=== PATIENT | male | born 1980 | race Caucasian/White ===

== ENCOUNTER 2021-05-08 14:20 | Emergency (ER) | payer BC ==
[2021-05-08] MEDS ORDERED: ONDANSETRON 4 MG (ODT) TAB ONE (15:30)
[2021-05-08] MEDS ORDERED: HYDROMORPHONE HCL 1 MG/ML INJ ONE (15:30)
[2021-05-08] MEDS ORDERED: dexAMETHasone 10 MG/ML VIAL ONE (15:30)
[2021-05-08] MEDS ORDERED: LIDOCAINE 4% PATCH ONE (15:31)
--- NOTE | 2021-05-08 15:48 | EDPHYS ---
Physician Documentation [facility] Name: Oleksandr Perez Age: 40 yrs Sex: Male : 1980 Arrival Date: 05/08/2021 Time: 14:21 Bed 12 Private MD: ED Physician Kalyan Shukla HPI: 05/08 14:59 This 40 yrs old Male presents to ER via Ambulatory with complaints of Back pm1 Pain. 14:59 The patient presents with pain that is chronic. The symptoms are located in the left pm1 low back. Onset: The symptoms/episode began/occurred 1 year(s) ago. The pain radiates to the left gluteus elvin. Associated signs and symptoms: Pertinent negatives: constipation, incontinence, numbness, tingling, weakness. Modifying factors: The patient symptoms are alleviated by remaining still, the patient symptoms are aggravated by movement. Severity of symptoms: in the emergency department the symptoms are actually worse. The patient has experienced similar episodes in the past, chronically. The patient has not recently seen a physician. Patient with recent Covid diagnoses in the past few weeks therefore he missed his steroid injection shot. Patient plans on contacting his neurologist tomorrow to reestablish injection shot. Historical: - Allergies: 14:37 No Known Allergies; ll1 - PMHx: 14:37 spinal stenosis; ll1 - PSHx: 14:37 Unable to Obtain; ll1 - Immunization history:: Client reports having NOT received the Covid vaccine. - Social history:: Smoking status: Patient reports the use of cigarette tobacco products, smokes one pack cigarettes per day. ROS: 14:59 Constitutional: Negative for fever, chills, and weight loss, Cardiovascular: Negative pm1 for chest pain, palpitations, and edema, Respiratory: Negative for shortness of breath, cough, wheezing, and pleuritic chest pain, Abdomen/GI: Negative for abdominal pain, nausea, vomiting, diarrhea, and constipation. 14:59 MS/Extremity: Negative for injury and deformity, Skin: Negative for injury, rash, and discoloration. 14:59 Back: Positive for of the left low back, Pain. 14:59 All other systems are negative. Exam: 14:59 Constitutional: This is a well developed, well nourished patient who is awake, alert, pm1 and in no acute distress. Patient sitting on chair upon entry into the room for examination 14:59 Head/Face: Normocephalic, atraumatic. 14:59 Skin: Warm, dry with normal turgor. Normal color with no rashes, no lesions, and no evidence of cellulitis. MS/ Extremity: Pulses equal, no cyanosis. Neurovascular intact. Full, normal range of motion. 14:59 Eyes: Exam is negative for acute changes, Pupils: no acute changes, Extraocular movements: no acute changes. 14:59 ENT: Exam is negative for acute changes, Mouth: no acute changes, Lips: normal, moist, Oral mucosa: normal, pink and intact, moist. 14:59 Cardiovascular: Exam negative for acute changes, Rate: normal, Rhythm: regular, Pulses: no pulse deficits are appreciated. 14:59 Respiratory: Exam negative for acute changes, respiratory distress, shortness of breath. 14:59 Abdomen/GI: Exam negative for acute changes, Inspection: obese 14:59 Back: pain, that is mild, of the left mid back, normal spinal alignment noted, vertebral tenderness, is not appreciated. 14:59 Neuro: Exam negative for acute changes, Orientation: is normal, Mentation: is normal, Motor: is normal, moves all fours. Vital Signs: 14:36 BP 160 / 80; Pulse 125; Resp 20; Temp 98.3; Pulse Ox 92% on R/A; Weight 181.44 kg; ll1 Height 6 ft. 2 in. (187.96 cm); Pain 10/10; 15:58 Pulse 101; Resp 18; Pulse Ox 94% on R/A; iw 14:36 Body Mass Index 51.36 (181.44 kg, 187.96 cm) ll1 MDM: 14:45 Patient medically screened. [facility] 15:39 Data reviewed: vital signs. pm1 15:39 Counseling: I had a detailed discussion with the patient and/or guardian regarding: the pm1 historical points, exam findings, and any diagnostic results supporting the discharge/admit diagnosis, the need for outpatient follow up, for definitive care, a neurosurgeon, to return to the emergency department if symptoms worsen or persist or if there are any questions or concerns that arise at home. Administered Medications: 15:15 Drug: Ondansetron 4 mg Route: PO; iw 16:00 Follow up: Response: No adverse reaction iw 15:16 Drug: Lidoderm Patch 5 % (700 mg/patch) 1 patches Route: Topical; Site: affected area; iw 15:16 Drug: Dilaudid (HYDROmorphone) 1 mg Route: IM; Site: left deltoid; iw 16:00 Follow up: Response: No adverse reaction iw 15:16 Drug: Decadron (dexamethasone) 10 mg Route: IM; Site: left deltoid; iw 16:00 Follow up: Response: No adverse reaction iw 15:58 Drug: Valium (diazepam) 5 mg Route: PO; iw 16:15 Follow up: Response: No adverse reaction iw Disposition: 05/09 10:37 Co-signature as Attending Physician, Kalyan Shukla MD I agree with the assessment and merlyn plan of care. Disposition Summary: 05/08/21 15:46 Discharge Ordered Location: Home pm1 Problem: new pm1 Symptoms: have improved pm1 Condition: Stable pm1 Diagnosis - Low back pain pm1 Followup: pm1 - With: Emergency Department - When: As needed - Reason: Worsening of condition Followup: pm1 - With: Private Physician - When: 2 - 3 days - Reason: Recheck today's complaints, Continuance of care, Re-evaluation by your physician Discharge Instructions: - Discharge Summary Sheet pm1 - Chronic Back Pain pm1 Forms: - Medication Reconciliation Form pm1 - Thank You Letter pm1 - Antibiotic Education pm1 - Prescription Opioid Use pm1 Prescriptions: - Lidoderm 5 % Topical adhesive patch,medicated - apply 1 patch by TRANSDERMAL route once daily As needed 12 hours on and 12 pm1 hours off in a 24-hour period; 10 patch; Refills: 0, Product Selection Permitted Signatures: Kalyan Shukla MD MD cha Williams, Irene, RN RN iw Haider Ramirez NP SENIOR BIOINFORMATICS SCIENTIST pm1 Janis Rangel RN RN ll1
--- NOTE | 2021-05-08 15:48 | ER ---
Nurse's Notes [facility] Name: Oleksandr Perez Age: 40 yrs Sex: Male : 1980 Arrival Date: 05/08/2021 Time: 14:21 Bed 12 Private MD: Diagnosis: Low back pain Presentation: 05/08 14:36 Chief complaint: Patient states: Back pain for 3 days. Has spinal stenosis, no trauma ll1 or falls recently. Cannot sit down during triage. Coronavirus screen: Vaccine status: Patient reports being unvaccinated. Patient reports having had a previously documented Covid positive illness. had covid antibody infusion last month Client denies travel out of the [place] in the last 14 days. At this time, the client does not indicate any symptoms associated with coronavirus-19. Ebola Screen: Patient denies travel to an Ebola-affected area in the 21 days before illness onset. Initial Sepsis Screen: Does the patient meet any 2 criteria? HR > 90 bpm. No. Patient's initial sepsis screen is negative. Does the patient have a suspected source of infection? Yes: Bone or joint infection. Risk Assessment: Do you want to hurt yourself or someone else? Patient reports no desire to harm self or others. Onset of symptoms was May 06, 2021. 14:36 Method Of Arrival: Ambulatory ll1 14:36 Acuity: TRESSA 2 ll1 Triage Assessment: 16:00 General: Appears in no apparent distress. Behavior is calm, cooperative. Pain: iw Complains of pain in left gluteus elvin and left low back and left mid back. Musculoskeletal: Range of motion: intact in all extremities. Historical: - Allergies: 14:37 No Known Allergies; ll1 - PMHx: 14:37 spinal stenosis; ll1 - PSHx: 14:37 Unable to Obtain; ll1 - Immunization history:: Client reports having NOT received the Covid vaccine. - Social history:: Smoking status: Patient reports the use of cigarette tobacco products, smokes one pack cigarettes per day. Screenin:39 Abuse screen: Denies threats or abuse. Denies injuries from another. Nutritional iw screening: No deficits noted. Tuberculosis screening: No symptoms or risk factors identified. Fall Risk None identified. Assessment: 15:00 General: Behavior is calm, cooperative. Neuro: Level of Consciousness is awake, alert, iw obeys commands, Oriented to person, place, time, situation, Moves all extremities. Full function. Respiratory: Respiratory effort is even, unlabored, Respiratory pattern is regular, symmetrical. 15:39 Reassessment: Patient appears in no apparent distress at this time. Patient and/or iw family updated on plan of care and expected duration. Pain level reassessed. no relief in pain at this time. Vital Signs: 14:36 BP 160 / 80; Pulse 125; Resp 20; Temp 98.3; Pulse Ox 92% on R/A; Weight 181.44 kg; ll1 Height 6 ft. 2 in. (187.96 cm); Pain 10/10; 15:58 Pulse 101; Resp 18; Pulse Ox 94% on R/A; iw 14:36 Body Mass Index 51.36 (181.44 kg, 187.96 cm) ll1 ED Course: 14:21 Patient arrived in ED. as 14:37 Triage completed. ll1 14:37 Arm band placed on Patient placed in an exam room, on a stretcher. ll1 14:42 Haider Ramirez NP is PHCP. pm1 14:42 Kalyan Shukla MD is Attending Physician. pm1 15:00 Olga Johnson, GUDELIA is Primary Nurse. iw 15:00 Patient has correct armband on for positive identification. iw 16:18 No provider procedures requiring assistance completed. Patient did not have IV access iw during this emergency room visit. Administered Medications: 15:15 Drug: Ondansetron 4 mg Route: PO; iw 16:00 Follow up: Response: No adverse reaction iw 15:16 Drug: Lidoderm Patch 5 % (700 mg/patch) 1 patches Route: Topical; Site: affected area; iw 15:16 Drug: Dilaudid (HYDROmorphone) 1 mg Route: IM; Site: left deltoid; iw 16:00 Follow up: Response: No adverse reaction iw 15:16 Drug: Decadron (dexamethasone) 10 mg Route: IM; Site: left deltoid; iw 16:00 Follow up: Response: No adverse reaction iw 15:58 Drug: Valium (diazepam) 5 mg Route: PO; iw 16:15 Follow up: Response: No adverse reaction iw Outcome: 15:46 Discharge ordered by . pm1 16:18 Discharged to home ambulatory. iw 16:18 Condition: good 16:18 Discharge instructions given to patient, Instructed on discharge instructions, follow up and referral plans. 16:19 Patient left the ED. iw Signatures: Harini Swartz Irene RN RN iw Haider Ramirez NP PAPIER MACHE MOLDER pm1 Janis Rangel RN RN ll1
[2021-05-08] MEDS ORDERED: DIAZEPAM 5 MG TABLET ONE (16:21)
[2021-05-08 16:25] VITALS: BP 160/80; TEMP 98.3
[2021-05-08 16:26] VITALS: O2SAT 94
== END 2021-05-08 16:19 | disposition home or self-care (01) ==
LOC: ER 14:20
DX: M54.50 Low back pain, unspecified (principal); F17.210 Nicotine dependence, cigarettes, uncomplicated
CPT/HCPCS: 96372; 99283; J1100; J1170

== ENCOUNTER → 2024-01-09 | Day surgery (SDC) | payer BC ==
[2024-01-08 09:26] LABS: Anion Gap 7.9 mEq/L (5.0-15.0); Potassium 3.9 mEq/L (3.5-5.1)
--- NOTE | 2024-01-08 12:42 | EKG ---
Test Date: 2024-01-08 Test Time: 08:18:36 Ingot Car Operator: PREO MEASUREMENT RESULTS: Intervals: Rate: 63 WA: 176 QRSD: 106 QT: 430 QTc: 440 [place]: P: 27 WA: 176 QRS: 68 T: 52 INTERPRETIVE STATEMENTS: Normal sinus rhythm Normal ECG Compared to ECG 10/10/2011 14:26:30 No significant changes Electronically Signed On 01-08-24 12:41:19 CDT by Jose Alberto Rosado
[~2024-01-09] MED LIST: LIDOCAINE 1% MPF 5 ML VIAL ONE; propofoL 200 MG/20 ML VIAL IV ONE
[2024-01-09] MEDS: Ringers Lactate 1,000 ML IV ONE (11:30)
[2024-01-09 14:36] VITALS: TEMP 97.4
[2024-01-09 14:54] VITALS: BP 113/73; O2SAT 100
== END | disposition home or self-care (01) ==
LOC: OR 11:01
PROVIDERS: ATTEND Surgery
PROC: 0DJD8ZZ Inspection of Lower Intestinal Tract, Via Natural or Artificial Opening Endoscopic (ICD-10-PCS; principal; 2024-01-09 12:45)
DX: Z12.11 Encounter for screening for malignant neoplasm of colon (principal); K64.8 Other hemorrhoids
CPT/HCPCS: 93005; 80048; 36415; 45378; J2704; J2001; J7120